=== PATIENT | male | born 1980 | race Caucasian/White ===

== ENCOUNTER 2018-01-06 00:41 | Emergency (ER) | payer SELFPAY ==
[~2018-01-06 00:41] MED LIST: LOR5 PO; NO MEDS
[2018-01-06 00:42] VITALS: BP 139/82
--- NOTE | 2018-01-06 00:44 | ER Report ---
History and Physical Time Seen By MD: 00:40 HPI/ROS CHIEF COMPLAINT: [facility] clearance HISTORY OF PRESENT ILLNESS: 37-year-old male brought in by police for retirement clearance. Patient voices no complaints. Patient voices no past medical history. She has slurred speech consistent with alcohol intoxication. REVIEW OF SYSTEMS: Respiratory: No cough, no dyspnea. Cardiovascular: No chest pain, no palpitations. Gastrointestinal: No vomiting, no abdominal pain. Musculoskeletal: No back pain. Allergies: Coded Allergies: No Known Drug Allergies (Verified , 01/06/18) Home Meds Discontinued Reported Medications Acetaminophen/Hydrocodone (Lortab 5/500) 5 Mg/500 Mg Tab, 2 EA PO Q6H 1, #20 0 Refills 1-2 TABLETS 01/11/07 [No Meds] No Conflict Check 01/11/07 Reviewed Nurses Notes: Yes Old Medical Records Reviewed: Yes Constitutional Vital Sign - Last 24 Hours 01/06/18 00:42 Temp 98.4 Pulse 110 Resp 18 B/P (MAP) 139/82 Pulse Ox 92 O2 Delivery Room Air Physical Exam Vital signs stable, afebrile, pulse ox normal General Appearance: The patient is alert, has no immediate need for airway protection and no current signs of toxicity. A patient of the head and neck reveal no tenderness or trauma HEENT: Pupils equal and round no injection. TMs normal, oropharynx without dental trauma Respiratory: Chest is non tender, lungs are clear to auscultation. No chest wall tenderness Cardiac: regular rate and rhythm Gastrointestinal: Abdomen is soft and non tender, no masses, bowel sounds normal. Musculoskeletal: Neck: Neck is supple and non tender. Extremities have full range of motion and are non tender. Skin: No rashes or lesions. DIFFERENTIAL DIAGNOSIS: After history and physical exam differential diagnosis was considered for a alcohol intoxication, polysubstance abuse, retirement clearance Medical Decision Making ED Course/Re-evaluation ED Course Patient was admitted to an examination room. H&P was done. The differential diagnoses was considered. On clinical examination. Patient has stable vital signs. There are no clinical findings on his examination. Patient's medically cleared for retirement admission. Decision to Disposition Date: Jan 06, 2018 Decision to Disposition Time: 00:43 Depart Departure Latest Vital Signs Vital Signs Date Time Temp Pulse Resp B/P (MAP) Pulse Ox O2 Delivery O2 Flow Rate FiO2 01/06/18 00:42 98.4 110 18 139/82 92 Room Air Impression: Primary Impression: Medical clearance for incarceration Additional Impression: Alcohol intoxication Condition: Improved Disposition: HOME OR SELF-CARE New Scripts No Active Prescriptions or Reported Meds Patient Instructions: Alcohol Intoxication (ED) Additional Instructions: Medically cleared for retirement admission Problem Qualifiers Additional Impression: Alcohol intoxication Complication of substance-induced condition: uncomplicated Qualified Codes: F10.920 - Alcohol use, unspecified with intoxication, uncomplicated AURELIA WADE DO Jan 06, 2018 00:44
== END 2018-01-06 00:52 ==
LOC: ER 00:48
DX: F10.920 Alcohol use, unspecified with intoxication, uncomplicated (principal)
CPT/HCPCS: 99281